=== PATIENT | female | born 1990 | race Caucasian/White ===

== ENCOUNTER 2019-05-26 17:43 | Emergency (ER) | payer OTHER ==
[~2019-05-26] VITALS: Ht 167.6 cm; Wt 79.4 kg
[~2019-05-26 17:43] MED LIST: PERCOCET 5-3251 EACH PO; SURFAK240 M1 PO
== END 2019-05-26 21:04 | disposition home or self-care (01) ==
LOC: ER 17:43
DX: R30.0 Dysuria (principal)